=== PATIENT | male | born 1985 | race Caucasian/White ===

== ENCOUNTER 2021-05-14 18:07 | Emergency (ER) | payer MEDICAID ==
[2021-05-14] MEDS ORDERED: Proparacaine 0.5% Ophth Soln 15 ML Bottle EYERT ONE (18:52)
--- NOTE | 2021-05-14 18:53 | EDM.PDOC ---
ED HPI GENERAL MEDICAL PROBLEM - General Chief Complaint: Eye Problems Stated Complaint: SOMETHING IN LEFT EYE Time Seen by Provider: 05/14/21 19:20 Source of Information: Reports: Patient, Family History Limitations: Reports: No Limitations - History of Present Illness INITIAL COMMENTS - FREE TEXT/NARRATIVE: 36-year-old male with something in his left eye for the past 3 days. Symptoms started after he was grinding metal. He thought it would go away but now it is worse. No visual complaints. Onset: Sudden Duration: Day(s): (Started 3 days ago while grinding) Location: Reports: Other (Left eye) Associated Symptoms: Reports: No Other Symptoms Left Eye Pain Score (Numeric/FACES): 4 - Related Data Allergies Allergy/AdvReac Type Severity Reaction Status Date / Time No Known Allergies Allergy Verified 05/14/21 18:39 Home Meds: Home Meds NK [No Known Home Meds] 05/14/21 [History] Past Medical History Musculoskeletal History: Reports: Fracture Neurological History: Reports: Concussion - Past Surgical History Musculoskeletal Surgical History: Reports: Other (See Below) Other Musculoskeletal Surgeries/Procedures:: wrist fx repair. Social & Family History - Tobacco Use Tobacco Use Status *Q: Never Tobacco User - Caffeine Use Caffeine Use: Reports: Coffee - Recreational Drug Use Recreational Drug Use: Yes Recreational Drug Type: Reports: Marijuana/Hashish Recreational Drug Use Frequency: Socially ED ROS GENERAL - Review of Systems Review Of Systems: See Below Constitutional: Denies: Fever, Chills HEENT: Reports: Other (Significant left eye pain, some redness). Denies: Vision Change Respiratory: Reports: No Symptoms Cardiovascular: Reports: No Symptoms GI/Abdominal: Reports: No Symptoms : Reports: No Symptoms Skin: Reports: No Symptoms Neurological: Denies: Headache Psychiatric: Reports: No Symptoms ED EXAM GENERAL W FULL EYE - Physical Exam Exam: See Below Exam Limited By: No Limitations General Appearance: Alert, Anxious, Mild Distress (Looks fairly uncomfortable) Eye Exam: Left Eye: Conjunctival Injection, Foreign Body (Obvious left corneal foreign body), Bilateral Eye: EOMI Eyelids: Bilateral: Normal Appearance Cornea Exam: Left: Foreign Body Extraocular Movements: Bilateral: Intact Head: Atraumatic Neck: Supple, Non-Tender Respiratory/Chest: No Respiratory Distress Course - Vital Signs Last Recorded V/S: Last Vital Signs Temp 97.3 F 05/14/21 18:38 Pulse 66 05/14/21 18:38 Resp 14 05/14/21 18:38 BP 110/69 05/14/21 18:38 Pulse Ox 99 05/14/21 18:38 - Orders/Labs/Meds Meds: Medications Discontinued Medications Generic Name Dose Route Start Last Admin Trade Name Scotty PRN Reason Stop Dose Admin Proparacaine HCl 1 ml 05/14/21 18:52 05/14/21 19:07 Proparacaine 0.5% Ophth Soln 15 Ml Bottle EYERT 05/14/21 18:53 1 dose ONETIME ONE Administration - Re-Assessments/Exams Free Text/Narrative Re-Assessment/Exam: 05/15/21 01:48 Proparacaine was placed in the left eye which gave the patient anesthesia. Exam with a slit lamp revealed a fairly large irregular piece of metal in the cornea just lateral to the pupil on the left eye. Both eyelids were inverted and there was no foreign body in the eyelids. Using a 30-gauge needle, the metal foreign body was removed off of the cornea but there still remained a fairly deep rust stain under the ulceration left by the foreign body. He was placed on gentamicin antibiotic drops, and he will call ophthalmology Sunday which is 36 hours from now to have his eye rechecked. Departure - Departure Time of Disposition: 19:58 Disposition: Home, Self-Care 01 Clinical Impression: Foreign body of left cornea Qualifiers: Encounter type: initial encounter Qualified Code(s): T15.02XA - Foreign body in cornea, left eye, initial encounter - Discharge Information Instructions: Eye Foreign Body, [id number] Referrals: PCP,None [Primary Care Provider] - Forms: ED Department Discharge Care Plan Goals: Use antibiotic drops four times a day, and numbing drops sparingly if needed and call an high school foreign language teacher on Sunday, either [facility] or [facility] [place] for a recheck appointment. Sepsis Event Note (ED) - Evaluation Sepsis Screening Result: No Definite Risk - Focused Exam Vital Signs: Vital Signs Temp Pulse Resp BP Pulse Ox 05/14/21 18:38 97.3 F 66 14 110/69 99 05/14/21 18:22 97.3 F 66 14 110/69 99
== END 2021-05-14 19:59 | disposition home or self-care (01) ==
LOC: JP.ED 18:07
DX: T15.02XA Foreign body in cornea, left eye, initial encounter (principal)
CPT/HCPCS: 65222; 99283; A9270

== ENCOUNTER 2023-02-18 09:08 | Emergency (ER) | payer MEDICAID | END 2023-02-18 10:28 | disposition left against medical advice (07) | LOC: JP.ED 09:08 | DX: Z53.21 Procedure and treatment not carried out due to patient leaving prior to being seen by health care provider (principal) ==

== ENCOUNTER 2025-03-11 06:45 | Day surgery (SDC) | payer MEDICAID ==
[2025-03-11] MEDS: Lactated Ringers 1,000 ML IV SCH (07:02)
[2025-03-11] MEDS ORDERED: Propofol 200 MG/20 ML SDV ONE (07:12)
[2025-03-11] MEDS ORDERED: Glycopyrrolate 0.2 MG/ML 5 ML MDV ONE (07:12)
[2025-03-11] MEDS ORDERED: fentaNYL 250 MCG/5 ML SDV ONE (07:12)
[2025-03-11] MEDS ORDERED: Ondansetron 4 MG/2 ML SDV ONE (07:12)
[2025-03-11] MEDS ORDERED: Succinylcholine 200 MG/10 ML MDV ONE (07:12)
[2025-03-11] MEDS ORDERED: Dexamethasone 4 MG/ML SDV ONE (07:12)
[2025-03-11 07:13] LABS: PLATELET COUNT,PLT 208.0 K/uL (130-375); RED BLOOD CELL COUNT 5.14 M/uL (4.14-5.76); WHITE BLOOD CELL COUNT,WBC 4.3 K/uL (3.2-11.0)
[2025-03-11 07:33] LABS: A/G RATIO 1.4 (1.2-2.2); ALANINE AMINOTRANSFERASE,ALT 24 U/L (12-78); ASPARTATE AMNIOTRANSFERASE,AST 20 U/L (15-37); BILIRUBIN TOTAL 0.5 mg/dL (0.2-1.0); BLOOD UREA NITROGEN,BUN 18 mg/dL (7-18); CARBON DIOXIDE,CO2 32 mmol/L (21-32); CHLORIDE,CL 104 mmol/L (100-108); CREATININE 1.0 mg/dL (0.8-1.3); EST CRCL DRUG DOSING (CG) 91.37 mL/min; ESTIMATED GFR 96 mL/min (>60); GLUCOSE RANDOM 112 mg/dL (74-106); POTASSIUM,K 5.1 mmol/L (3.6-5.2); PROTEIN TOTAL,TP 7.1 g/dL (6.4-8.2); SODIUM,NA 142 mmol/L (140-148)
[2025-03-11] MEDS: metroNIDAZOLE/Normal Saline 500 MG in Premix Bag 1 BAG IV ONE (07:45)
[2025-03-11] MEDS: Bupivacaine 0.5%/EPINEPHrine 1:200,000 50 ML MDV ONE (08:30)
[2025-03-11] MEDS ORDERED: Ketorolac 30 MG/ML SDV ONE (08:54)
[2025-03-11] MEDS ORDERED: fentaNYL 100 MCG/2 ML SDV ONE (08:54)
[2025-03-11] MEDS ORDERED: Lactated Ringers 1,000 ML ONE (08:55)
== END 2025-03-11 11:10 | disposition home or self-care (01) ==
LOC: JP.SDS 06:45
PROVIDERS: ATTEND Surgery
DX: K40.90 Unilateral inguinal hernia, without obstruction or gangrene, not specified as recurrent (principal); D17.6 Benign lipomatous neoplasm of spermatic cord
CPT/HCPCS: 36415; 49650; 80053; 85027; C1781; J0171; J0330; J0690; J1100; J1596; J1836; J1885; J2405; J2704; J2710; J2795; J3010; J3490; J7120; 00830-QZ; J0169